=== PATIENT | female | born 1965 | race Caucasian/White ===

== ENCOUNTER 2017-03-01 00:26 | Emergency (ER) | payer OTHER ==
[~2017-03-01] VITALS: Ht 154.9 cm; Wt 82.2 kg
[~2017-03-01 00:26] MED LIST: CALC-664 PO; CHOL200012 PO; CYCL10TA9 PO; DIAZ10TA3 PO; FLUO10CA20 PO; HYOS0.1217 PO; LEVO137T2 PO; NYST15CR TP; OMEP20CA11 PO; OXYC5TAB72 PO
[2017-03-01 00:29] VITALS: BP 109/66; PULSE 88; RESP 16; O2SAT 97
--- NOTE | 2017-03-01 00:58 | ED.REPORT ---
HPI-General Illness Date of Service March 01, 2017 ED Provider: Joby Rivas MD 51 year old female presents to the ER complaining of fever (102F) onset today, and worsening rash to the left axilla. Patient was diagnosed with MRSA two weeks ago. She has since completed two courses of Augmentin, and started a course of Bactrim three days ago. Associated symptoms include shortness of breath, decreased appetite, and intermittent nausea. Patient denies cough, vomiting, and changes in bowel or urinary habits. Nursing Notes Stated Complaint: FEVER/SOB Chief Complaint: General Complaint Nursing Notes Reviewed: Yes Allergies: Coded Allergies: codeine (Verified Allergy, Severe, rash, 03/01/17) lidocaine (Verified Allergy, Unknown, UNKNOWN, 11/30/14) Uncoded Allergies: Ants (Allergy, Unknown, UNKNOWN, 11/30/14) dial soap (Allergy, Unknown, UNKNOWN, 11/30/14) roberto toilet paper (Allergy, Unknown, UNKNOWN, 11/30/14) Scheduled Calcium Carbonate/Vitamin D3 (Oyster Shell Calcium Tablet) 1 Each Tablet 1 EACH PO DAILY 600MG Cholecalciferol (Vitamin D3) (D3-2000) 2,000 Unit Capsule 2,000 UNIT PO BID Fluoxetine (Fluoxetine) 10 Mg Capsule 20 MG PO DAILY Levothyroxine (Levothyroxine) 137 Mcg Tablet 137 MCG PO DAILY Nystatin/Triamcin (Nystatin-Triamcinolone Cream) 15 Gm Cream..g. 15 GM TP PRN Omeprazole (Omeprazole) 20 Mg Capsule.dr 20 MG PO BID Scheduled PRN Cyclobenzaprine (Cyclobenzaprine) 10 Mg Tablet 10 MG PO HS PRN PRN For Pain Diazepam (Diazepam) 10 Mg Tablet 5-10 MG PO HS PRN PRN For Anxiety Hyoscyamine ODT (Hyoscyamine ODT) 0.125 Mg Tab.rapdis 0.125 MG PO BID PRN PRN PRN oxyCODONE (oxyCODONE) 5 Mg Tablet 5-10 MG PO BID PRN PRN For Pain General Time Seen by : 00:57 Chief Complaint Fever Hx Obtained From: Patient Arrived By: Walk-in Sudden in Onset?: No Onset Occurred: More than a week ago... (2 weeks) Symptom Duration: Since onset Associated with: Reports: Nausea, Shortness of breath, Denies: Cough, Vomiting Pertinent Negative: Pt denies other symptoms Recent Healthcare: Recent doctor visit Similar Sx Previous: No Past Medical History Past Medical History MRSA Reports: Hyperlipidemia Reports: Thyroid disease (Hypothyroid) Past Surgical History Knee repair Bilateral CTR's Ovarian cyst excision Left shoulder repair Reports: Appendectomy, Cholecystectomy Smoking History Unknown if Ever Smoker Social History Other Social History: Good social support Ambulatory Status Independent Review of Systems +Decreased appetite Full Review of Systems Constitutional: Reports: Fever Respiratory: Reports: Shortness of breath, Denies: Non-productive cough GI: Reports: Nausea, Denies: Abdominal pain, Constipation, Diarrhea, Vomiting Female: Denies: Dysuria, Hematuria, Urination decreased, Urination increased Skin: Reports Rash Complete sys rev & neg: except as marked. Physical Exam Vital Signs Vital Signs Date Time Temp Pulse Resp B/P Pulse Ox O2 Delivery O2 Flow Rate FiO2 03/01/17 02:29 37.4 82 16 111/65 99 Room Air 03/01/17 00:29 38.7 88 16 109/66 97 Room Air Initial VS: Reviewed Head / Eyes: Atraumatic, Normocephalic Neck: Supple, Non-tender, Full range of motion Respiratory: Breath sounds normal, Clear to auscultation, No respiratory distress Cardiovascular: Regular rate & rhythm, Heart sounds normal, Intact distal pulses Abdomen / GI: Soft, Non-tender, No guarding, No rebound, No distention Extremities: Vascular intact, Neuro intact, No swelling, No tenderness Neurologic: Alert, Oriented, Nonfocal Psychiatric: Mood/affect normal, Behavior normal, Normal thought content General/Constitutional: Awake, Alert, Well developed, Well nourished Skin: Warm, Dry, Intact Abscess Notes: 2cm abscess left axilla with 4cm surrounding erythema and induration. Abscess #1 Location/Condition: Positive: Axilla L... Interpretation & Diagnostics Lab Results Interpretation Result Diagram: 03/01/17 0119 03/01/17 0119 Test 03/01/17 01:19 White Blood Count 10.6th/mm3 (3.8-10.1) Red Blood Count 3.71mil/mm3 (3.90-5.20) Hemoglobin 11.4g/dL (12.0-15.6) Hematocrit 33.9% (35.0-46.0) Mean Corpuscular Volume 91.4fL (81-100) Mean Corpuscular Hemoglobin 30.7pg (27.0-35.0) Mean Corpuscular Hemoglobin Concent 33.6% (32.0-37.0) Red Cell Distribution Width 11.9% (12.3-15.4) Platelet Count 161bil/L (150-400) Neutrophils (%) (Auto) 70.5% (40-74) Lymphocytes (%) (Auto) 19.1% (14-46) Monocytes (%) (Auto) 9.1% (4-12) Eosinophils (%) (Auto) 1.0% (0-5) Basophils (%) (Auto) 0.1% (0-3) Sodium Level 134mEq/L (134-144) Potassium Level 4.3mEq/L (3.5-5.2) Chloride Level 97mEq/L (97-108) Carbon Dioxide Level 23mmol/L (18-29) Blood Urea Nitrogen 13mg/dL (6-24) Creatinine 0.91mg/dL (0.57-1.00) Estimat Glomerular Filtration Rate 93mL/min (>59) Glucose Level 94mg/dL (60-99) Lactic Acid Level 0.8mmol/L (0.4-2.0) Calcium Level 9.2mg/dL (8.5-10.1) Total Bilirubin 0.3mg/dL (0.0-1.2) Aspartate Amino Transf (AST/SGOT) 18U/L (0-50) Alanine Aminotransferase (ALT/SGPT) 19U/L (0-32) Alkaline Phosphatase 73U/L (25-150) Total Protein 7.1g/dL (6.4-8.4) Albumin 4.1g/dL (3.4-5.0) Procedures Incision & Drainage Abscess Time: 01:34 Procedure Performed by: ED physician Consent / Setup / Site Prep: Informed consent provided, Consent from patient , Time-out performed, Hand hygiene observed, Stand sterile technique, Standard surgical scrub, Sterile drapes applied Location of Abscess: Left axilla Skin Preparation Agent: Hibiclens - Chlorhexidine Local Anesthesia: Lidocaine 1% Pus Drained: Small (2cc), Purulent discharge Irrigation: Yes Post-Procedure / Complications: Packing placed, Culture obtained, Gram stain ordered, Dressing applied, No complications, Condition improved, Tolerated procedure well, Patient stable Re-Eval/Medical Decision Med Decision/Clinical Course 51-year-old presents with one of multiple abscesses recently, this one her left axilla. She has had progression of increasing tenderness and redness despite three days of Bactrim therapy. It was incised and drained of about 2 mL of pus, and packed with iodoform gauze. Hot soaks and continued antibiotics recommended. Follow up with PCP. Drain removal in 48-72 hours Source of Hx: Old records Time of Eval: 01:34 Re-Evaluation/Progress Note: Completed abscess I&D. Discussed plan to discharge. Patient is amenable to the plan. Return precautions given. All other questions addressed. Counseled Regarding: Diagnosis, Lab results, Need for follow-up, When/why to return to ED Discharge & Departure Primary Impression: Abscess Additional Impression: MRSA infection Disposition: Home Discharge Condition All VS Reviewed: Yes Condition: Stable Additional Instructions: This may well be a methicillin-resistant staph aureus infection. A culture is pending. White count was 10,600 today. Apply a hot soak four times daily, and then apply bacitracin and dress with a fresh gauze dressing. On Sunday morning, soak the drain and pull it out and discard it. Continue your antibiotics. Follow-up with your doctor in the office. Return if any immediate issues. Referrals: Lucas Boykin MD (PCP) Scribe Attestation Portions of this note were transcribed by August Taylor. I, Dr. Rivas, personally performed the history, physical exam and medical decision-making; I reviewed and confirmed the accuracy of the information in the transcribed note. Signed by: Manuel Steele, 03/01/2017 at 02:02 copies to: Lucas Boykin MD, Christopher W MD March 01, 2017 00:58 AUGUST TAYLOR March 01, 2017 01:07
[2017-03-01 01:22] LABS: BASOPHILS % (AUTO) 0.1 % (0-3); MONOCYTES % (AUTO) 9.1 % (4-12); Mean Corpuscular Hemoglobin 30.7 pg (27.0-35.0); Mean Corpuscular Volume 91.4 fL (81-100); NEUTROPHILS % (AUTO) 70.5 % (40-74); Platelet Count 161 bil/L (150-400)
[2017-03-01 02:29] VITALS: BP 111/65; PULSE 82; RESP 16; O2SAT 99
== END 2017-03-01 02:29 | disposition home or self-care (01) ==
LOC: SED 00:26
DX: L02.412 Cutaneous abscess of left axilla (principal); B95.62 Methicillin resistant Staphylococcus aureus infection as the cause of diseases classified elsewhere; R06.02 Shortness of breath; R11.0 Nausea; E03.9 Hypothyroidism, unspecified; E78.5 Hyperlipidemia, unspecified; Z98.890 Other specified postprocedural states; Z88.5 Allergy status to narcotic agent; Z88.8 Allergy status to other drugs, medicaments and biological substances